=== PATIENT | female | born 1940 | race Caucasian/White ===

== ENCOUNTER 2016-05-14 10:38 | Emergency (ER) | payer MEDICARE, OTHER ==
[2016-05-14] MEDS ORDERED: MECLIZINE 12.5 MG TABLET PO STA (12:40)
[2016-05-14] MEDS ORDERED: SODIUM CHLORIDE 0.9% 1,000 ML IV ONE (12:40)
[2016-05-14] MEDS ORDERED: ONDANSETRON 4 MG/2 ML VIAL IVP STA (12:40)
[2016-05-14] MEDS ORDERED: MECLIZINE 12.5 MG TABLET PO ONE (12:46)
[2016-05-14] MEDS ORDERED: ONDANSETRON 4 MG/2 ML VIAL ONE (12:46)
== END 2016-05-14 15:11 | disposition home or self-care (01) ==
DX: E86.0 Dehydration (principal); H83.01 Labyrinthitis, right ear
CPT/HCPCS: 36415; 80053; 81001; 83690; 85025; 87086; 96374; 99283; 99284; A9270

== ENCOUNTER 2017-08-17 18:48 | Outpatient (CLI) | payer MEDICARE, OTHER ==
--- NOTE | 2017-08-18 09:32 | Ultrasound Report ---
RENAL ULTRASOUND: 08/17/2017 CLINICAL INDICATION: History of bladder cancer, UTI, dysuria. TECHNIQUE: Real-time scanning was performed with retail account representative static images obtained. FINDINGS: The right kidney measures 9.9 x 6.4 x 3.6 cm, and the left kidney measures 10.0 x 6.3 x 5.1 cm. Both kidneys demonstrate parapelvic cysts. No hydronephrosis, solid renal lesion, or perinephric collection is present. Prevoid, the urinary bladder measures 9.2 x 8.7 x 5.9 cm, yielding a volume of 240 mL. Bilateral ureteral jets are visualized. The bladder wall appears normal. Postvoid residual was 24 mL. IMPRESSION: INCIDENTAL PARAPELVIC CYSTS. TD: 08/18/2017 09:30
== END 2017-08-17 18:49 | disposition home or self-care (01) ==
LOC: DI 18:48
PROVIDERS: ATTEND Urology
DX: R30.0 Dysuria (principal); N28.1 Cyst of kidney, acquired; Z87.440 Personal history of urinary (tract) infections; Z85.51 Personal history of malignant neoplasm of bladder
CPT/HCPCS: 76770

== ENCOUNTER 2019-03-30 17:15 | Emergency (ER) | payer MEDICARE, OTHER ==
[2019-03-30 17:24] VITALS: BP 128/68
--- NOTE | 2019-03-30 18:04 | ED Physician Documentation ---
PD HPI HEAD INJURY - Stated complaint Stated Complaint: 6 PACK FELL ON HEAD - Chief complaint Chief Complaint: Trauma Hd/Nk - History obtained from History obtained from: Patient - History of Present Illness Mechanism of head injury: Blow (She was getting some beer off the top shelf at the grocery store and it fell and hit her on the left side of the forehead. She has no headache, no nausea, no light sensitivity. No other injuries. She is not anticoagulated. This happened about an hour and a half ago.) Review of Systems Constitutional: denies: Fever, Chills Nose: denies: Rhinorrhea / runny nose, Congestion Throat: denies: Sore throat Cardiac: denies: Chest pain / pressure, Palpitations PD PAST MEDICAL HISTORY - Past Medical History HEENT: Other - Past Surgical History Past Surgical History: Yes - Present Medications Home Medications: Ambulatory Orders Medication Instructions Recorded Confirmed Estrogens, Conjugated Cream 1 applic TOP .FREQ 03/14/16 04/17/16 [Premarin Cream] Meclizine HCl 25 mg PO Q6HR PRN #20 tab.chew 05/14/16 Ondansetron Odt [Zofran] 4 mg TL Q6H PRN #10 tablet 05/14/16 - Allergies Allergies/Adverse Reactions: Allergies Allergy/AdvReac Type Severity Reaction Status Date / Time ampicillin [Ampicillin] Allergy Nausea Verified 03/30/19 17:21 - Social History Does the pt smoke?: No Smoking Status: Never smoker Does the pt drink ETOH?: Yes Does the pt have substance abuse?: No - Immunizations Immunizations are current?: Yes - POLST Patient has POLST: No PD ED PE NORMAL - Vitals Vital signs reviewed: Yes - General General: Alert and oriented X 3, No acute distress - HEENT HEENT: PERRL, EOMI, Other (There is no facial bony tenderness, there is a small ecchymosis on the high left forehead, not over the gnosticism.) - Neck Neck: Supple, no meningeal sign, No bony TTP - Neuro Neuro: Alert and oriented X 3, collection advisor 2-12 intact, No motor deficit, No sensory deficit, Normal speech - Psych Psych: Normal mood, Normal affect Results - Vitals Vitals: Vital Signs - 24 hr 03/30/19 17:21 Temperature 37.1 C Heart Rate 61 Respiratory 17 Rate Blood Pressure 128/68 O2 Saturation 100 Oxygen O2 Source Room air PD MEDICAL DECISION MAKING - ED course ED course: 78-year-old woman with a minor head injury, the lack of headache or other significant findings suggest against anything to worry about and watchful waiting was advised Departure - Departure Disposition: 01 Home, Self Care Clinical Impression: Scalp contusion Qualifiers: Encounter type: initial encounter Qualified Code(s): S00.03XA - Contusion of scalp, initial encounter Condition: Good Record reviewed to determine appropriate education?: Yes Instructions: ED Head Injury Closed Comments: Return if you develop a significant headache or any other new or concerning symptoms. Discharge Date/Time: 03/30/19 18:12
== END 2019-03-30 18:12 | disposition home or self-care (01) ==
LOC: ED 17:15
DX: S00.83XA Contusion of other part of head, initial encounter (principal); W20.8XXA Other cause of strike by thrown, projected or falling object, initial encounter; Y93.89 Activity, other specified; Y92.512 Supermarket, store or market as the place of occurrence of the external cause
CPT/HCPCS: 99281; 99282

== ENCOUNTER 2022-01-06 12:50 | Outpatient (CLI) | payer MEDICARE, OTHER | END 2022-01-06 12:51 | disposition home or self-care (01) | LOC: LAB 12:50 | PROVIDERS: ATTEND Internal Medicine | DX: K58.8 Other irritable bowel syndrome (principal); B79 Trichuriasis | CPT/HCPCS: 81599; 87045; 87046; 87177; 87209; 87427; 89055 ==

== ENCOUNTER 2023-03-25 08:00 | Outpatient (CLI) | payer MEDICARE, OTHER ==
[2023-03-25 18:39] LABS: BILIRUBIN,URINE NEGATIVE (NEGATIVE); GLUCOSE, URINE (UA) NEGATIVE (NEGATIVE); KETONES,URINE (UA) NEGATIVE (NEGATIVE); LEUKOCYTE ESTERASE, URINE NEGATIVE (NEGATIVE); NITRITE,URINE NEGATIVE (NEGATIVE); OCCULT BLOOD,URINE TRACE-INTA (NEGATIVE); PROTEIN,URINE NEGATIVE (NEGATIVE); UROBILINOGEN,URINE 0.2 (NORMAL) E.U./dL (NORMAL)
[2023-03-25 18:41] LABS: CLARITY,URINE HAZY (CLEAR)
[2023-03-25 18:49] LABS: BACTERIA,URINE Rare /HPF (None Seen); RBC,URINE 0-5 /HPF (0-5); SQUAMOUS EPITHELIAL CELL,UR RARE Squamous (<= Few); WBC,URINE 0-3 /HPF (0-5)
== END 2023-03-25 23:59 | disposition home or self-care (01) ==
LOC: LAB 08:00
PROVIDERS: ATTEND Urology
DX: R35.1 Nocturia (principal); Z85.51 Personal history of malignant neoplasm of bladder
CPT/HCPCS: 81001; 87086